=== PATIENT | male | born 1985 | race Caucasian/White ===

== ENCOUNTER 2016-08-13 17:39 | Emergency (ER) | payer BC, OTHER ==
--- NOTE | 2016-08-13 18:03 | EKG ---
[address] [address] Test Date: 2016-08-13 Test Time: 17:56:14 Pat Name: BURTON KENNEDY Department: Room: Gender: M [employer]: [place] : 1985 Requested By: OXANA CHRISTINE Order Number: [id number] Reading MD: Edil Krishnamurthy Measurements Intervals [place] Rate: 70 P: 49 [place]: 148 QRS: 56 QRSD: 86 T: 44 QT: 418 QTc: 454 Interpretive Statements SINUS RHYTHM Electronically Signed On 08-15-2016 15:34:23 CDT by Edil Krishnamurthy
--- NOTE | 2016-08-13 18:27 | ED.ADGEN ---
Past History Past Medical History: CAD, Cancer, Other Past Surgical History: Other Smoking: Cigarettes Alcohol Use: Heavy Drug Use: Amphetamine, Marijuana, Methamphetamine, Opiates Adult General Chief Complaint Chief Complaint Chest pain HPI HPI Patient is a 31 year old male who presents with chest pain. He states he has a history of lymphoma and had received chemotherapy 4-6 months ago and is scheduled to do radiation but have insurance and hasn't been back for it. States he was seen and bilateral [facility] 2 weeks ago for this chest pain and he presents today with and has a referral to the [facility] to complete his therapy. He states he's been having this pain for several weeks and is constant in the left chest and does not radiate does not make him nauseated or make him vomit, he is not became diaphoretic with it. He does feel short of breath with this and when he takes a big deep breath his pain is slightly worse. He denies any fevers chills, productive cough. He states that this is a same pain that he had 2 weeks ago when he received Percocet which helped. He is requesting Percocet again. Review of Systems Review of Systems Constitutional: Denies fever or chills [] Eyes: Denies change in visual acuity, redness, or eye pain [] HENT: Denies nasal congestion or sore throat [] Respiratory: Denies cough or shortness of breath [] Cardiovascular: No additional information not addressed in HPI [] GI: Denies abdominal pain, nausea, vomiting, bloody stools or diarrhea [] : Denies dysuria or hematuria [] Musculoskeletal: Denies back pain or joint pain [] Integument: Denies rash or skin lesions [] Neurologic: Denies headache, focal weakness or sensory changes [] Endocrine: Denies polyuria or polydipsia [] Current Medications Current Medications Current Medications Medications (Trade) Dose Ordered Sig/Ashley Start Time Stop Time Status Last Admin Dose Admin Aspirin (Children'S Aspirin) 324 mg 1X ONCE 08/13/16 19:00 08/13/16 19:02 DC 08/13/16 19:00 324 MG Morphine Sulfate (Morphine 4mg Syringe) 4 mg PRN Q15MIN PRN 08/13/16 18:30 08/14/16 18:29 08/13/16 21:37 4 MG Allergies Allergies Allergies Coded Allergies Type Severity Reaction Last Updated Verified No Known Drug Allergies 06/16/15 No Physical Exam Physical Exam Constitutional: Well developed, well nourished, no acute distress, non-toxic appearance. [] HENT: Normocephalic, atraumatic, bilateral external ears normal, oropharynx moist, no oral exudates, nose normal. [] Eyes: PERRLA, EOMI, conjunctiva normal, no discharge. [] Neck: Normal range of motion, no tenderness, supple, no stridor. [] Cardiovascular:Heart rate regular rhythm, no murmur [] Lungs & Thorax: Bilateral breath sounds clear to auscultation [] Abdomen: Bowel sounds normal, soft, no tenderness, no masses, no pulsatile masses. [] Skin: Warm, dry, no erythema, no rash. [] Back: No tenderness, no CVA tenderness. [] Extremities: No tenderness, no cyanosis, no clubbing, ROM intact, no edema. [] Neurologic: Alert and oriented X 3, normal motor function, normal sensory function, no focal deficits noted. [] Psychologic: Affect normal, judgement normal, mood normal. [] Current Patient Data Vital Signs Vital Signs Date Time Temp Pulse Resp B/P (MAP) Pulse Ox O2 Delivery O2 Flow Rate FiO2 08/13/16 17:45 98.7 80 20 98 Room Air Lab Results Laboratory Tests Test 08/13/16 18:24 08/13/16 19:13 08/13/16 20:37 D-Dimer (Kayley) 0.41 mg/L (0.00-0.50) White Blood Count 4.9 x10^3/uL (4.0-11.0) Red Blood Count 4.93 x10^6/uL (4.30-5.70) Hemoglobin 14.6 g/dL (13.0-17.5) Hematocrit 42.0 % (39.0-53.0) Mean Corpuscular Volume 85 fL (79-100) Mean Corpuscular Hemoglobin 30 pg (25-35) Mean Corpuscular Hemoglobin Concent 35 g/dL (31-37) Red Cell Distribution Width 13.6 % (11.5-14.5) Platelet Count 248 x10^3/uL (140-400) Neutrophils (%) (Auto) 66 % (31-73) Lymphocytes (%) (Auto) 20 % (24-48) L Monocytes (%) (Auto) 10 % (0-9) H Eosinophils (%) (Auto) 2 % (0-3) Basophils (%) (Auto) 1 % (0-3) Neutrophils # (Auto) 3.2 x10^3uL (1.8-7.7) Lymphocytes # (Auto) 1.0 x10^3/uL (1.0-4.8) Monocytes # (Auto) 0.5 x10^3/uL (0.0-1.1) Eosinophils # (Auto) 0.1 x10^3/uL (0.0-0.7) Basophils # (Auto) 0.0 x10^3/uL (0.0-0.2) Prothrombin Time 10.4 SEC (9.4-11.4) Prothrombin Time INR 1.0 (0.9-1.1) PTT 25 SEC (23-33) Sodium Level 141 mmol/L (136-145) Potassium Level 3.3 mmol/L (3.5-5.1) L Chloride Level 105 mmol/L (98-107) Carbon Dioxide Level 31 mmol/L (21-32) Anion Gap 5 (6-14) L Blood Urea Nitrogen 7 mg/dL (8-26) L Creatinine 0.9 mg/dL (0.7-1.3) Estimated GFR (Cockcroft-Gault) 97.2 BUN/Creatinine Ratio 8 (6-20) Glucose Level 100 mg/dL (70-99) H Calcium Level 8.9 mg/dL (8.5-10.1) Magnesium Level 1.9 mg/dL (1.8-2.4) Total Bilirubin 0.6 mg/dL (0.2-1.0) Aspartate Amino Transferase (AST) 33 U/L (15-37) Alanine Aminotransferase (ALT) 40 U/L (16-63) Alkaline Phosphatase 74 U/L (46-116) Creatine Kinase 143 U/L (39-308) Creatine Kinase MB (Mass) 1.5 ng/mL (0.0-3.6) Creatine Kinase MB Relative Index 1.0 % (0-4) Troponin I Quantitative < 0.017 ng/mL (0-0.055) ZH-Lew-H-Type Natriuretic Peptide 197 pg/mL (0-124) H Total Protein 7.0 g/dL (6.4-8.2) Albumin 3.5 g/dL (3.4-5.0) Albumin/Globulin Ratio 1.0 (1.0-1.7) Lipase 97 U/L (73-393) Urine Opiates Screen Pos (NEG) Urine Methadone Screen Neg (NEG) Urine Barbiturates Neg (NEG) Urine Phencyclidine Screen Neg (NEG) Urine Amphetamine/Methamphetamine Pos (NEG) Urine Benzodiazepines Screen Neg (NEG) Urine Cocaine Screen Neg (NEG) Urine Cannabinoids Screen Pos (NEG) Urine Ethyl Alcohol Neg (NEG) Urine Collection Type Unknown Urine Color Yellow Urine Clarity Hazy Urine pH 7.0 Urine Specific [place] 1.020 Urine Protein Neg (NEG-TRACE) Urine Glucose (UA) Neg mg/dL (NEG) Urine Ketones (Stick) Neg mg/dL (NEG) Urine Blood Neg (NEG) Urine Nitrite Neg (NEG) Urine Bilirubin Neg (NEG) Urine Urobilinogen Dipstick 1 mg/dL (0.2 mg/dL) Urine Leukocyte Esterase Neg (NEG) Urine RBC 0 /HPF (0-2) Urine WBC Occ /HPF (0-4) Urine Squamous Epithelial Cells Occ /LPF Urine Amorphous Sediment Present /HPF Urine Bacteria 0 /HPF (0-FEW) EKG EKG EKG shows normal sinus 370 beats were without any ST elevations, T-wave inversions noted in leads V1 through V3, normal axis, QTC 454 ms as interpreted by me. EKG is similar to one in May 2015. Radiology/Procedures Radiology/Procedures One view chest x-ray did not show any focal consolidations, bony abnormalities, pneumothorax, as interpreted by me. Course & Med Decision Making Course & Med Decision Making Pertinent Labs and Imaging studies reviewed. (See chart for details) KG, labs, chest x-ray nonacute. His d-dimer is negative therefore do not believe this is PE. Patient potassium was replaced with 40 mEq by mouth 1. He is being discharged with 20 tablets of 5/325 Percocet. He's a follow-up with [facility] within next several days. Return precautions given his agreeable to the plan and being discharged in stable condition this time. Final Impression Final Impression Chest pain Polysubstance abuse History of lymphoma Hypokalemia Problems: Dragon Disclaimer Dragon Disclaimer This electronic medical record was generated, in whole or in part, using a voice recognition dictation system. DULCE TURNER MD August 13, 2016 18:27
[2016-08-13] MEDS ORDERED: ASPIRIN 81 MG TAB.CHEW PO ONE (19:00)
[2016-08-13] MEDS: MORPHINE SULFATE 4 MG/ML DISP.SYRIN. IV/SQ PRN ×2 (19:15→21:37)
[2016-08-13 19:57] LABS: BASO % 1 % (0-3); EOS # 0.1 x10^3/uL (0.0-0.7); EOS % 2 % (0-3); HEMOGLOBIN 14.6 g/dL (13.0-17.5); LYMPH % 20 % (24-48); MEAN CORPUSCULAR HEMOGLOBIN 30 pg (25-35); MEAN CORPUSCULAR HGB CONC 35 g/dL (31-37); MEAN CORPUSCULAR VOLUME 85 fL (79-100); MONO # 0.5 x10^3/uL (0.0-1.1); MONO % 10 % (0-9); NEUT # 3.2 x10^3uL (1.8-7.7); NEUT % 66 % (31-73); PLATELET COUNT 248 x10^3/uL (140-400); RED BLOOD COUNT 4.93 x10^6/uL (4.30-5.70); RED CELL DISTRIBUTION WIDTH 13.6 % (11.5-14.5); WHITE BLOOD COUNT 4.9 x10^3/uL (4.0-11.0)
[2016-08-13 20:20] LABS: ALBUMIN 3.5 g/dL (3.4-5.0); CALCIUM 8.9 mg/dL (8.5-10.1); CREATININE 0.9 mg/dL (0.7-1.3); GFR 97.2; MAGNESIUM 1.9 mg/dL (1.8-2.4); POTASSIUM 3.3 mmol/L (3.5-5.1); TOTAL BILIRUBIN 0.6 mg/dL (0.2-1.0)
[2016-08-13 21:19] LABS: AMPHETAMINE/METHAMPHETAMINE POS (NEG); BARBITURATES NEG (NEG); BENZODIAZEPINES NEG (NEG); CANNABINOIDS POS (NEG); COCAINE NEG (NEG); METHADONE NEG (NEG); OPIATES POS (NEG); PHENCYCLIDINE NEG (NEG)
[2016-08-13 21:34] LABS: AMORPHOUS SEDIMENT,UR PRESENT /HPF; BACTERIA,URINE 0 /HPF (0-FEW); BILIRUBIN,URINE NEG (NEG); CLARITY,URINE HAZY; COLOR,URINE YELLOW; GLUCOSE,URINE NEG (NEG); NITRITE,URINE NEG (NEG); RBC,URINE 0 /HPF (0-2); SQUAMOUS EPITHELIAL CELL,UR OCC /LPF; UROBILINOGEN,URINE 1 mg/dL (0.2 mg/dL); WBC,URINE OCC /HPF (0-4)
[2016-08-13] MEDS ORDERED: OXYC-323 PO (21:39)
[2016-08-13 21:48] VITALS: BP 140/90
[2016-08-13] MEDS ORDERED: POTASSIUM CHLORIDE 20 MEQ TABLET.ER. PO ONE (22:15)
--- NOTE | 2016-08-14 07:54 | RAD ---
Portable chest, 08/13/2016: History: Chest pain There has been a previous median sternotomy. A right Port-A-Cath extends into the superior vena cava. The heart size and pulmonary vascularity are normal. No pulmonary infiltrates are seen. There is no evidence of pleural fluid. IMPRESSION: 1. A right Port-A-Cath is in satisfactory position. 2. No acute cardiopulmonary abnormality is detected.
== END 2016-08-13 22:00 | disposition home or self-care (01) ==
LOC: ER 17:39
DX: R07.89 Other chest pain (principal); F15.10 Other stimulant abuse, uncomplicated; F12.10 Cannabis abuse, uncomplicated; F11.10 Opioid abuse, uncomplicated; F10.10 Alcohol abuse, uncomplicated; E87.6 Hypokalemia; R06.02 Shortness of breath; F17.210 Nicotine dependence, cigarettes, uncomplicated; I25.10 Atherosclerotic heart disease of native coronary artery without angina pectoris; Z85.72 Personal history of non-Hodgkin lymphomas
CPT/HCPCS: 36415; 71010; 80053; 80305; 80320; 81001; 82553; 83690; 83735; 83880; 84443; 84484; 85027; 85379; 85610; 85730; 93005; 96374; 96376; 99285; J2270; G0481

== ENCOUNTER 2016-09-06 02:01 | Inpatient (IN) | payer OTHER ==
[2016-09-06] VITALS (10 sets, daily range): BP systolic 114–213; BP diastolic 65–95
[~2016-09-06] VITALS: Ht 180.3 cm; Wt 95.7 kg
[~2016-09-06 02:01] MED LIST: OXYC-323 PO
[2016-09-06] MEDS ORDERED: IV NORMAL SALINE 1,000ML 1,000 ML IV SCH (02:21)
[2016-09-06] MEDS ORDERED: OXYC-328 PO (02:23)
--- NOTE | 2016-09-06 02:25 | EKG ---
[address] [address] Test Date: 2016-09-06 Test Time: 02:12:08 Pat Name: BURTON KENNEDY Department: Room: Gender: M [employer]: : 1985 Requested By: MIMI SIMONS Order Number: [id number] Reading MD: Ifeanyi Joe Measurements Intervals [place] Rate: 87 P: 56 [place]: 138 QRS: 67 QRSD: 82 T: 50 QT: 362 QTc: 436 Interpretive Statements SINUS RHYTHM QRS(T) CONTOUR ABNORMALITY CANNOT RULE OUT ANTEROLATERAL MYOCARDIAL DAMAGE RI6.01 Unconfirmed report Compared to ECG 08/13/2016 17:56:14 No significant changes Electronically Signed On 09-09-2016 10:41:14 CDT by Ifeanyi Joe
[2016-09-06] MEDS ORDERED: ONDANSETRON PF 4 MG/2 ML VIAL. IV ONE (02:30)
[2016-09-06] MEDS ORDERED: ASPIRIN 81 MG TAB.CHEW PO ONE (02:30)
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
[2016-09-06] MEDS: MORPHINE SULFATE 4 MG/ML DISP.SYRIN. IV/SQ PRN ×5 (02:58→16:00)
[2016-09-06 03:17] LABS: BASO % 0 % (0-3); EOS % 1 % (0-3); HEMATOCRIT 40.1 % (39.0-53.0); LYMPH # 0.4 x10^3/uL (1.0-4.8); LYMPH % 6 % (24-48); MEAN CORPUSCULAR HEMOGLOBIN 30 pg (25-35); MEAN CORPUSCULAR HGB CONC 35 g/dL (31-37); MEAN CORPUSCULAR VOLUME 86 fL (79-100); MONO # 0.6 x10^3/uL (0.0-1.1); MONO % 8 % (0-9); NEUT # 6.2 x10^3uL (1.8-7.7); NEUT % 86 % (31-73); PLATELET COUNT 192 x10^3/uL (140-400); RED BLOOD COUNT 4.67 x10^6/uL (4.30-5.70); RED CELL DISTRIBUTION WIDTH 13.6 % (11.5-14.5); WHITE BLOOD COUNT 7.2 x10^3/uL (4.0-11.0)
[2016-09-06 03:35] LABS: ALBUMIN 3.5 g/dL (3.4-5.0); ALBUMIN/GLOBULIN RATIO 1.1 (1.0-1.7); CALCIUM 8.2 mg/dL (8.5-10.1); CREATININE 0.9 mg/dL (0.7-1.3); GFR 97.2; MAGNESIUM 1.7 mg/dL (1.8-2.4); POTASSIUM 3.6 mmol/L (3.5-5.1); TOTAL BILIRUBIN 0.3 mg/dL (0.2-1.0); TOTAL PROTEIN 6.8 g/dL (6.4-8.2)
--- NOTE | 2016-09-06 05:22 | ACF ---
Admission Criteria Forms CHEST PAIN Clinical Indications for Admission to Inpatient Care (Place 'X' for any and all applicable criteria): Admission is indicated for chest pain and ANY ONE of the following(1)(2)(3)(4)(5 ): [ ]I. Angina with acute coronary syndrome (Also use Myocardial Infarction or Angina guideline) [ ]II. Hemodynamic instability [ ]III. Angina needing acute intervention as indicated by ALL of the following( 11)(12): [ ]a) Unstable angina is present as indicated by angina that is ANY ONE of the following: [ ]i) New onset [ ]ii) Nocturnal [ ]iii) Prolonged at rest [ ]iv) Progressive [ ]b) Angina warrants acute intervention as indicated by ANY ONE of the following: [ ]i) Recurrent angina (e.g, not responding as previously to treatment) [ ]ii) Angina at rest or with low-level activities despite initial medical therapy [ ]iii) New or presumably new ST-segment depression on ECG [ ]iv) Signs or symptoms of heart failure (eg, dyspnea, pulmonary edema) [ ]v) New or worsening mitral regurgitation [ ]vi) Hemodynamic instability [ ]vii) Dangerous arrhythmia (eg, sustained ventricular tachycardia) [ ]viii) History of percutaneous coronary intervention within 6 months [ ]ix) History of coronary artery bypass graft surgery [ ]x) GOLD risk score of 2 or greater[A] [ ]xi) History of Diabetes(14) [ ]xii) High-risk cardiac ischemia findings on noninvasive testing (e.g, echocardiogram, treadmill testing, nuclear scan) [ ]xiii) Chronic renal insufficiency (ie, estimated GFR less than 60 mL/min/1.732m) [ ]xiv) Left ventricular ejection fraction less than 40% [ ]IV. Evidence of AK (eg, cardiac biomarkers positive, ST-segment elevation on ECG) also use Myocardial Infarction Criteria Form. [ ]V. Pulmonary edema [ ]. Respiratory distress [ ]VII. Chest pain indicative of serious diagnosis other than coronary artery disease (eg, aortic dissection) [ ]VIII. Contraindications and/or Inappropriate clinical situations for Observational Care in patients with Chest Pain, when ANY ONE of the following is required: [ ]a) Patient with risk factor for pulmonary embolism, acute coronary syndrome and myocardial infarction (18) [ ]b) Patient with Pulmonary embolism require an average LOS of 4.3 days, therefore emergency department observation management is inappropriate 18,23 [ ]c) Painful condition/s in the elderly, have the highest rate of recidivism after emergency department observation management (10.8%) 20,21,22 [ ]d) Elevated cardiac biomarker requires intensive and exhaustive care (19) [X]IX. General contraindications and/or Inappropriate clinical situations for Observational Care in patients with Chest Pain, when ANY ONE of the following is required: [X]a) Prediction of prolongation of LOS based on ANY ONE of the following may be considered as a contraindication for observational care 2, 3, 4, 5, 6, 7, 8, 9, 10, 11 [ ]i) Age > 65 yrs. [ ]ii) Patient arriving by ambulance [ ]iii) Patient with high acuity [ ]iv) Patient requiring vital sign monitoring [X]v) Patient on IV medication [ ]b) Systolic blood pressures 180mmHg 3,12 [ ]c) Patient with altered mental status including delirium and other alteration of consciousness, (3) [ ]d) Patient whose discharge disposition will be to a custodial home or rehabilitation home should not be managed in Emergency Department Observation Unit. CMS rule requires 3 days hospital stay before such placement. 3,13 [ ]e) Patient with failure to thrive due to broad array of etiologies 3,16,17 [ ]f) Inability to ambulate 3,14 Extended stay beyond goal length of stay may be needed for (1)(28): [ ]a) Specific condition diagnosed after evaluation (eg, pulmonary embolism, aortic dissection) [ ]b) Unstable angina [ ]c) Continued suspicion of acute coronary syndrome with inability to complete needed cardiac evaluation (eg, patient clinically unable to undergo stress testing) [ ]d) Myocardial infarction (Contents from ANGINA and CHEST PAIN clinical indications for admission to inpatient care have been integrated in this form) The original [facility] content created by [employer] has been revised. The portions of the content which have been revised are identified through the use of italic text or in bold, and [facility] [employer] by [employer] has neither reviewed nor approved the modified material. All other unmodified content is copyright [employer]. Please see references footnoted in the original [facility] edition 2016 Admission Criteria Met?: Yes CECILIA COSBY Sep 06, 2016 05:22
--- NOTE | 2016-09-06 07:14 | RAD ---
Chest, 2 views, 09/06/2016: History: Chest pain Comparison is made to a study from 08/13/2016. There has been a previous median sternotomy. A right Port-A-Cath extends into the superior vena cava. The heart size and pulmonary vascularity are normal. A nodular opacity projected along the inferolateral aspect of the right hilum is likely an artifact on the surface of the patient. No acute infiltrates are seen. There is no evidence of pleural fluid IMPRESSION: No acute cardiopulmonary abnormality is detected.
[2016-09-06 08:00] LABS: BILIRUBIN,URINE NEG (NEG); CLARITY,URINE HAZY; COLOR,URINE YELLOW; GLUCOSE,URINE NEG (NEG); NITRITE,URINE NEG (NEG); UROBILINOGEN,URINE 0.2 mg/dL (0.2 mg/dL)
[2016-09-06 08:01] LABS: BACTERIA,URINE FEW /HPF (0-FEW); RBC,URINE OCC /HPF (0-2); SQUAMOUS EPITHELIAL CELL,UR OCC /LPF
[2016-09-06 08:06] LABS: AMPHETAMINE/METHAMPHETAMINE POS (NEG); BARBITURATES NEG (NEG); BENZODIAZEPINES NEG (NEG); CANNABINOIDS POS (NEG); COCAINE POS (NEG); METHADONE NEG (NEG); OPIATES POS (NEG); PHENCYCLIDINE NEG (NEG)
--- NOTE | 2016-09-06 09:04 | EKG ---
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 RI6.01 Unconfirmed report Compared to ECG 08/13/2016 17:56:14 No significant changes Electronically Signed On 09-09-2016 10:41:36 CDT by Ifeanyi Joe
[2016-09-06] MEDS ORDERED: IV NORMAL SALINE 1,000ML 1,000 ML IV ONE (09:15)
[2016-09-06] MEDS ORDERED: IOHEXOL 300 MG/ML 75 ML VIAL. IV ONE (09:45)
--- NOTE | 2016-09-06 10:14 | RAD ---
CTA of the chest with contrast, 09/06/2016: History: Chest pain, elevated d-dimer, lymphoma Multidetector CT imaging was performed following an IV bolus injection of iodinated contrast material. Multiplanar reconstructions were produced including coronal MIP images. Comparison is made to a study from 06/16/2015. The central pulmonary arteries are well opacified and no filling defects are seen to suggest pulmonary emboli. There has been a previous median sternotomy. The thoracic aorta is of normal caliber. A right Port-A-Cath extends into the right atrium. There is a 3.8 x 2.2 cm density in the anterior mediastinum. This has decreased in size since 06/16/2015. This presumably represents treated lymphoma. There are multiple other small mediastinal lymph nodes without definite evidence of pathologic enlargement. Several small celiac region lymph nodes in the upper abdomen appear to be unchanged. Mild basilar and posterior groundglass opacities in the lungs are compatible with dependent atelectasis. No pulmonary mass is identified. No pleural fluid is present. IMPRESSION: 1. No CT evidence of central pulmonary emboli. 2. Anterior mediastinal adenopathy has regressed in this patient with a given history of lymphoma. 3. Mild dependent atelectasis in both lungs. PQRS Compliance Statement: One or more of the following individualized dose reduction techniques were utilized for this examination: 1. Automated exposure control 2. Adjustment of the mA and/or kV according to patient size 3. Use of iterative reconstruction technique
[2016-09-06] MEDS ORDERED: HEPARIN PF 5 UNIT/5 ML DISP.SYRIN. IV ONE (10:33)
[2016-09-06] MEDS ORDERED: HEPARIN PF 500 UNIT/5 ML DISP.SYRIN. IV ONE (11:00)
[2016-09-06 12:15] LABS: BASO % 1 % (0-3); EOS % 0 % (0-3); HEMATOCRIT 40.4 % (39.0-53.0); HEMOGLOBIN 13.7 g/dL (13.0-17.5); LYMPH # 0.4 x10^3/uL (1.0-4.8); LYMPH % 8 % (24-48); MEAN CORPUSCULAR HEMOGLOBIN 30 pg (25-35); MEAN CORPUSCULAR HGB CONC 34 g/dL (31-37); MEAN CORPUSCULAR VOLUME 87 fL (79-100); MONO # 0.4 x10^3/uL (0.0-1.1); MONO % 8 % (0-9); NEUT # 3.8 x10^3uL (1.8-7.7); NEUT % 83 % (31-73); PLATELET COUNT 173 x10^3/uL (140-400); RED BLOOD COUNT 4.65 x10^6/uL (4.30-5.70); RED CELL DISTRIBUTION WIDTH 13.9 % (11.5-14.5); WHITE BLOOD COUNT 4.5 x10^3/uL (4.0-11.0)
[2016-09-06] MEDS ORDERED: ACETAMINOPHEN 500 MG TABLET PO ONE (12:15)
[2016-09-06] MEDS ORDERED: PIPERACILLIN/TAZOBACTAM 4.5 GM in IV NORMAL SALINE 50ML 50 ML IV ONE (13:00)
[2016-09-06] MEDS ORDERED: VANCOMYCIN 2 GM in IV NORMAL SALINE 500ML 500 ML IV ONE ×4 (13:00)
[2016-09-06] MEDS ORDERED: PIPERACILLIN/TAZOBACTAM 4.5 GM VIAL IV ONE (13:11)
[2016-09-06] MEDS ORDERED: IV NORMAL SALINE 50ML 50 ML ONE (13:11)
[2016-09-06 13:52] LABS: CSF PROTEIN 24.6 mg/dL (15.0-45.0)
--- NOTE | 2016-09-06 13:57 | RAD ---
CT scan of the head without contrast 09/06/2016 Clinical history: Headache and fever. Technique: Unenhanced, contiguous, 5 mm axial sections were obtained through the head. One or more of the following individualized dose reduction techniques were utilized for this study: 1. Automated exposure control. 2. Adjustment of the mA and/or kV according to patient size. 3. Use of iterative reconstruction technique. Findings: The ventricles and sulci are within normal limits in size and configuration. No area of abnormal attenuation is involving the brain parenchyma. No extra-axial fluid collection is seen. No skull fracture is noted. Impression: Negative study.
[2016-09-06] MEDS ORDERED: IBUPROFEN 600 MG TABLET. PO ONE (14:00)
[2016-09-06 14:24] LABS: CSF CLARITY CLEAR; CSF COLOR COLORLESS
[2016-09-06 14:25] LABS: CSF RBC COUNT 0; CSF WBC COUNT 0
[2016-09-06] MEDS ORDERED: PIP/TAZO PER PHARMACY MC PRN (14:45)
[2016-09-06] MEDS ORDERED: ACETAMINOPHEN 325 MG TABLET PO PRN (14:45)
[2016-09-06] MEDS ORDERED: diphenhydrAMINE 50 MG/ML VIAL IVP PRN (15:15)
[2016-09-06] MEDS ORDERED: LORazepam 2 MG/ML VIAL IV PRN (15:15)
[2016-09-06] MEDS: VANCOMYCIN PER PHARMACY MC PRN (15:30)
[2016-09-06] MEDS: POTASSIUM CL 20MEQ D5-0.45NACL 1,000 ML IV SCH (16:00)
[2016-09-06] MEDS ORDERED: MAGNESIUM SULFATE 1GM 100 ML IV ONE (16:00)
[2016-09-06] MEDS: PIPERACILLIN/TAZOBACTAM 4.5 GM in IV NORMAL SALINE 50ML 50 ML IV SCH (17:52)
[2016-09-06] MEDS: KETOROLAC 30 MG/ML VIAL. IV PRN (19:36)
[2016-09-06] MEDS: VANCOMYCIN 1.5 GM in IV NORMAL SALINE 500ML 500 ML IV SCH (21:48)
[2016-09-06] MEDS: MORPHINE SULFATE 2 MG/ML DISP.SYRIN. IV PRN (21:48)
[2016-09-07] VITALS (12 sets, daily range): BP systolic 96–157; BP diastolic 60–104
[2016-09-07] MEDS: POTASSIUM CL 20MEQ D5-0.45NACL 1,000 ML IV SCH ×3 (00:10→11:27)
[2016-09-07] MEDS: PIPERACILLIN/TAZOBACTAM 4.5 GM in IV NORMAL SALINE 50ML 50 ML IV SCH ×3 (00:10→12:58)
[2016-09-07] MEDS: MORPHINE SULFATE 2 MG/ML DISP.SYRIN. IV PRN (05:13)
[2016-09-07] MEDS: VANCOMYCIN 1.5 GM in IV NORMAL SALINE 500ML 500 ML IV SCH (06:08)
[2016-09-07 06:14] LABS: BASO % 1 % (0-3); EOS % 0 % (0-3); HEMATOCRIT 41.7 % (39.0-53.0); HEMOGLOBIN 14.4 g/dL (13.0-17.5); LYMPH # 0.6 x10^3/uL (1.0-4.8); LYMPH % 19 % (24-48); MEAN CORPUSCULAR HEMOGLOBIN 30 pg (25-35); MEAN CORPUSCULAR HGB CONC 35 g/dL (31-37); MEAN CORPUSCULAR VOLUME 86 fL (79-100); MONO # 0.4 x10^3/uL (0.0-1.1); MONO % 13 % (0-9); NEUT # 1.9 x10^3uL (1.8-7.7); NEUT % 67 % (31-73); PLATELET COUNT 172 x10^3/uL (140-400); RED BLOOD COUNT 4.82 x10^6/uL (4.30-5.70); RED CELL DISTRIBUTION WIDTH 14.1 % (11.5-14.5); WHITE BLOOD COUNT 2.9 x10^3/uL (4.0-11.0)
[2016-09-07 06:17] LABS: ALBUMIN 2.7 g/dL (3.4-5.0); ALBUMIN/GLOBULIN RATIO 0.9 (1.0-1.7); CREATININE 0.8 mg/dL (0.7-1.3); GFR 111.3; TOTAL BILIRUBIN 0.6 mg/dL (0.2-1.0); TOTAL PROTEIN 5.8 g/dL (6.4-8.2)
[2016-09-07 06:18] LABS: POTASSIUM 4.2 mmol/L (3.5-5.1)
[2016-09-07] MEDS ORDERED: MVI, ADULT NO.4 WITH VIT K 10 ML, FOLIC ACID 1 MG, THIAMINE 100 MG in IV DEXTROSE 5 %-0... IV SCH ×4 (09:00)
[2016-09-07] MEDS ORDERED: MORPHINE SULFATE 2 MG/ML DISP.SYRIN. IV PRN ×2 (09:15→11:00)
[2016-09-07] MEDS ORDERED: CARISOPRODOL 350 MG TABLET PO PRN (11:00)
[2016-09-07] MEDS: KETOROLAC 30 MG/ML VIAL. IV PRN (11:06)
[2016-09-07] MEDS ORDERED: oxyCODONE/APAP 10/325 1 TAB TABLET PO PRN (11:15)
[2016-09-07] MEDS ORDERED: NICOTINE 21MG PATCH. TD SCH (11:15)
[2016-09-07] MEDS: LIDOCAINE (700MG/PATCH) PATCH. TD SCH ×2 (11:18→14:18)
--- NOTE | 2016-09-07 12:35 | HP ---
ADMIT DATE: 09/06/2016 REASON FOR ADMISSION: Chest pain, fever, rule out endocarditis. HISTORY OF PRESENT ILLNESS: This is a 31-year-old male with a previous history of lymphoma and polysubstance abuse, who has had multiple trips to the Emergency Room for chest pain. He presented to the Emergency Room with chest pain and subsequently developed a fever of 102.7. The patient states the chest pain is different from than normal chest he has and describes it is somewhat of a stabbing pain, left-sided. The patient had a prolonged stay in the Emergency Room and actually was being ready to be discharged when he developed a fever max of 102.7. He had a lumbar puncture in the Emergency Room, which was negative, but was supposed to have a stat echocardiogram to rule out endocarditis, because of IV drug use. However, that has not been done as of yet. PAST MEDICAL HISTORY: Significant for lymphoma, which he was just seen by his oncologist, and not sure the status on that, polysubstance abuse, tobacco use disorder. MEDICATIONS: He was prescribed some oxycodone by the oncologist, but stated that was not helping, I believe he was given 10 mg of oxycodone with that. ALLERGIES: None. SOCIAL HISTORY: The patient had moved to [place] and states that he was clean for quite a while and then moved back and got in with the same crowd. He admitted use of methamphetamine, cocaine and marijuana. He also has used these IV as well. Heavy tobacco use as well. Alcohol not so much. REVIEW OF SYSTEMS: Positive for neck pain, headache, chest pain, aches and pains, myalgias. OBJECTIVE: VITAL SIGNS: Blood pressure 143/104, pulse 84, respirations 14, pulse ox 99% on room air. His previous blood pressure was 123/79. GENERAL: He is alert and oriented, appropriate, calm and cooperative, using quite a bit of profanity however. HEENT: His hearing is normal. His eyes are clear. His nose was patent. His throat was clear. NECK: Supple. He does have some tenderness over the trapezius muscles. LUNGS: Clear. CARDIOVASCULAR: Regular rhythm and rate. There was no palpatory tenderness over the precordium. ABDOMEN: Soft, nontender. EXTREMITIES: Without edema. SKIN: Tanned. He has multiple areas of pockmarks from IV use. LABORATORY DATA: White count this morning is 2.9 with 13 monocytes. His chemistry, his magnesium was 1.7, now it is 2.0 with a placement. His albumin is 2.7 after IV fluids. Drug screen was positive for cannabinoids, cocaine, methamphetamine, and he was given opiates in the ER, so he was positive for opiates. His D-dimer was elevated. Head CT was negative. Chest CT shows regressing anterior mediastinal adenopathy, dependent atelectasis. His EKG was negative. His echo was still pending. ASSESSMENT: 1. Febrile illness, questionable etiology, must rule out endocarditis in the face of chest pain and intravenous drug abuse. 2. Polysubstance abuse. 3. Tobacco use disorder. 4. Chronic pain. 5. Chronic use of narcotics. 6. Poor social situation. 7. Hypomagnesemia. PLAN: The patient is receiving IV antibiotics at the present time. We are awaiting results of the echo, if they are negative we will discontinue the antibiotics. We will try to manage his pain with his little bit of narcotics as possible and have ordered Toradol and heating pad as well as lidocaine patch. FANNIE GIBSON DO DR: SANDHYA/andre JOB#: [id number] / [id number]
[2016-09-07 14:12] LABS: VANC TR 14.6 mcg/mL (10.0-20.0)
[2016-09-07] MEDS ORDERED: VANCOMYCIN 1.75 GM in IV NORMAL SALINE 500ML 500 ML IV SCH ×2 (14:34→14:45)
[2016-09-07] MEDS: VANCOMYCIN PER PHARMACY MC PRN (15:00)
--- NOTE | 2016-09-07 15:36 | CARD ---
APPROVED REPORT EXAM: Two-dimensional and M-mode echocardiogram with Doppler and color Doppler. Other Information Quality : Good INDICATION Infection:Rule out subacute bacterial endocarditis 2D DIMENSIONS RVDd3.0 (2.9-3.5cm)Left Atrium(2D)3.7 (1.6-4.0cm) IVSd1.2 (0.7-1.1cm)Aortic Root(2D)3.0 (2.0-3.7cm) LVDd5.2 (3.9-5.9cm)LVOT Diameter2.3 (1.8-2.4cm) PWd1.0 (0.7-1.1cm)LVDs3.5 (2.5-4.0cm) FS (%) 31.8 %SV75.4 ml LVEF(%)59.5 (>50%) Aortic Valve AoV Peak Ovidio.124.7cm/Rodriguez Peak GR.6.2mmHg LVOT Peak Ovidio.107.1cm/sAVA (VMAX)3.52cm2 Mitral Valve MV E Ciwnvema39.5cm/sMV DECEL PMOJ098hn MV A Vrvlsjgw93.6cm/sE/A Ratio2.1 Tricuspid Valve TR P. Dclxkjli190dt/sRAP PKEFCOFK5teEn TR Peak Gr.68cyQoTDBI91nvXs Pulmonary Vein S1 Xswywyfv97.0cm/sD2 Phemvifv09.7cm/s LEFT VENTRICLE The left ventricle is normal size. There is mild asymmetric septal left ventricular hypertrophy. The left ventricular systolic function is normal. The Ejection Fraction is 55-60%. There is normal LV seg mental wall motion. The left ventricular diastolic function and filling is normal for age. RIGHT VENTRICLE The right ventricle is normal size. The right ventricular systolic function is normal. ATRIA The left atrium size is normal. The right atrium size is normal. The interatrial septum is intact wit h no evidence for an atrial septal defect or patent foramen ovale as noted on 2-D or Doppler imaging. AORTIC VALVE The aortic valve is normal in structure and function. Doppler and Color Flow revealed no significant aortic regurgitation. There is no significant aortic valvular stenosis. There is no aortic valvular v egetation. MITRAL VALVE The mitral valve is normal in structure and function. There is no mitral vegetation noted. There is n o evidence of mitral valve prolapse. There is no mitral valve stenosis. Doppler and Color-flow reveal ed trace mitral regurgitation. TRICUSPID VALVE The tricuspid valve is normal in structure and function. Doppler and Color Flow revealed mild tricusp id regurgitation. There is moderate pulmonary hypertension. The PA pressure was estimated at 40 mmHg. There is no tricuspid valve prolapse or vegetation. There is no tricuspid valve stenosis. PULMONIC VALVE The pulmonary valve is normal in structure and function. Doppler and Color Flow revealed mild pulmoni c valvular regurgitation. There is no pulmonic valvular stenosis. GREAT VESSELS The aortic root is normal in size. The ascending aorta is normal in size. The IVC is normal in size a nd collapses >50% with inspiration. PERICARDIAL EFFUSION There is no evidence of significant pericardial effusion. Critical Notification Critical Value: No <Conclusion> The left ventricular systolic function is normal. The Ejection Fraction is 55-60%. There is normal LV segmental wall motion. Trace mitral regurgitation. Mild tricuspid regurgitation. There is moderate pulmonary hypertension. The PA pressure was estimated at 40 mmHg. There is no evidence of significant pericardial effusion. No evidence of intracardiac vegetations or thrombi.
--- NOTE | 2016-09-08 12:38 | DS ---
DATE OF DISCHARGE: 09/07/2016 DISCHARGE DIAGNOSES: 1. Febrile illness suspect viral endocarditis was ruled out. 2. Incidental finding of moderate pulmonary hypertension. 3. Polysubstance abuse including cocaine, cannabis, and methamphetamine. 4. Tobacco use disorder. 5. Chronic pain. 6. Chronic chest pain. 7. For social situation 8. Hypomagnesemia. 9. Status post spinal tap, cultures negative. 10. Lymphoma. Questionable state whether active or in remission. HOSPITAL COURSE: 31-year-old male was admitted for chest pain and fever of 102.7 all his cultures were negative. There was some concern that he might have endocarditis, an echocardiogram was done showing moderate pulmonary hypertension. This may be due to his longstanding methamphetamine abuse. The patient was counseled extensively on quitting drug use. VITAL SIGNS: On discharge, his blood pressure was 144/78, temperature 97.1, pulse 69, and pulse ox 99% on room air. DISPOSITION: To home. He needs to establish care with the primary care physician and he also needs to see his Dr. ____. He needs to follow up with his lymphoma oncologist. Did not give him any narcotics. FANNIE GIBSON DO DR: SANDHYA/andre JOB#: [id number] / [id number]
[2016-09-10 12:08] LABS: WEST NILE IGG CSF Negative (Negative); WEST NILE IGM CSF Negative (Negative)
== END 2016-09-07 16:52 | disposition home or self-care (01) | DRG 313 ==
LOC: ER 02:01 → ICU 12:46
PROVIDERS: ADMIT Family Medicine; ATTEND Family Medicine
DX: R07.89 Other chest pain (principal); C85.90 Non-Hodgkin lymphoma, unspecified, unspecified site; E83.42 Hypomagnesemia; F12.10 Cannabis abuse, uncomplicated; F14.10 Cocaine abuse, uncomplicated; F15.10 Other stimulant abuse, uncomplicated; F19.90 Other psychoactive substance use, unspecified, uncomplicated; I25.10 Atherosclerotic heart disease of native coronary artery without angina pectoris; I27.2 Other secondary pulmonary hypertension; F17.210 Nicotine dependence, cigarettes, uncomplicated; Z85.9 Personal history of malignant neoplasm, unspecified; Z79.891 Long term (current) use of opiate analgesic; Z79.899 Other long term (current) drug therapy; Z79.2 Long term (current) use of antibiotics; Z92.21 Personal history of antineoplastic chemotherapy
CPT/HCPCS: 36415; 62270; 70450; 71020; 71275; 80053; 80202; 81001; 82553; 82945; 83605; 83735; 84157; 84484; 85027; 85379; 86788; 86789; 87040; 87071; 87075; 87641; 89051; 93005; 93306; 96361; 96365; 96366; 96367; 96375; G0481; J1885; J2270; J2405; J2543; J3370; J3475; J7040; Q9967; 99291-25; J7030